=== PATIENT | female | born 1960 | race Caucasian/White ===

== ENCOUNTER 2024-02-09 07:28 | Outpatient (AMB) | payer OTHER, SELFPAY ==
--- NOTE | 2024-02-09 07:34 | A.OFFPC_ITS ---
Vital Signs 02/09/24 07:36 Height 5 ft 9 in Weight 170 lb BMI 25.1 BP 128/80 Blood Pressure Location Lt brachial Position Sitting Pulse 67 Pulse Source Pulse Oximeter Pulse Oximetry (%) 100 Oxygen Delivery Method Room Air Intake Visit Reasons: PE/ insurance needs update Intake Note: Pt is here today as a New Patient to est care/PE Allergies cefotetan Allergy (Intermediate, Verified 02/09/24 08:13) Rash Medication List - Last Reconciled 02/09/24 by Connie Olsen MD calcitriol (Rocaltrol) 0.25 mcg PO DAILY levothyroxine (Unithroid) 125 mcg PO DAILY metformin ER 500 mg PO DAILY Tobacco use date assessed: 02/09/24 Dental Screening Dental Screen Date: 02/09/24 Did you have a dental visit in the last 12 months?: Yes Did you have a dental problem in the last 6 months where you did not have access to dental care?: No Was dental information given to patient?: Patient has dentist HPI PE/ insurance needs update HPI Details Patient presents for [employer] physical. Past medical history includes type 2 diabetes hypothyroidism, controlled on current medications. [facility] Family History (Updated 02/09/24 @ 08:08 by Connie Olsen MD) Mother DM type 2 (diabetes mellitus, type 2) Father DM type 2 (diabetes mellitus, type 2) Sister No problems noted. Social History (Updated 02/09/24 @ 08:23 by Connie Olsen MD) Household Members Other:: , 2 daughters,cares of 2 grandkids, Housing: House Patient Tobacco Use Status: Never used Tobacco e-Cigarette/Vaping Use: Never Used service: No Current occupational status: unemployed Cognitive needs: No Hearing needs: No Vision needs: Yes Questionnaire PHQ-9 Over the last 2 weeks, how often have you been bothered by any of the following problems? 1. Little interest or pleasure in doing things: not at all 2. Feeling down, depressed, or hopeless: not at all 3. Trouble falling or staying asleep, or sleeping too much: not at all 4. Feeling tired or having little energy: not at all 5. Poor appetite or overeating: not at all 6. Feeling bad about yourself - or that you are a failure or have let yourself or your family down: not at all 7. Trouble concentrating on things, such as reading the newspaper or watching t elevision: not at all 8. Moving or speaking so slowly that other people could have noticed. Or the opposite - being so fidgety or restless that you have been moving around a lot more than usual: not at all 9. Thoughts that you would be better off or of hurting yourself in some way: not at all Total score: 0 Depression Screening Interpretation: Negative Depression Screening Done: Yes 65010 - PHQ-9 Billing: Yes Source: Developed by Drs. Kishor Piña, Katharina Bynum, German Melton and colleagues, with an educational amanda from [employer]. Thrive Questionnaire Date Thrive assessed: 02/09/24 I am a: Patient What is your living situation today?: I have a steady place to live Within the past 12 months, did the food you bought not last and you didn't have the money to get more?: I choose not to answer this question Within the past 12 months, did you worry whether your food would run out before you got money to buy more?: I choose not to answer this question Do you have trouble paying for medicines?: No Do you have trouble getting transportation to medical appointments?: No Do you have trouble paying your heating and electricity bill?: No Do you have trouble taking care of your child, family member or friend?: No Do you have trouble with day-to-day activities such as bathing, preparing meals, shopping, managing finances, etc.?: No Are you currently unemployed and looking for a job?: Yes Are you interested in more education?: No Please select the resources that you would like help with: None Currently or been in a relationship where the following occur: I choose not to answer THRIVE Score: 0 AUDIT C Alcohol Use Questionnaire (AUDIT-C) 1. How often do you have a drink containing alcohol?: Never Total Score: 0 URSZULA-7 AMB Questionnaire URSZULA-7 Date URSZULA - 7 assessed: 02/09/24 Feeling nervous, anxious, or on edge: 0 = Not at all Not being able to stop or control worryin = Not at all Worrying too much about different things: 0 = Not at all Trouble relaxin = Not at all Being so restless that it is hard to sit still: 0 = Not at all Becoming easily annoyed or irritable: 0 = Not at all Feeling afraid as if something awful might happen: 0 = Not at all Total URSZULA-7 score (0-4 normal; 5-9 mild; 10-14 moderate; 15-21 severe): 0 Source: Developed by Drs. Kishor Piña, Katharina Bynum, German Melton and colleagues, with an educational amanda from [employer]. Review of Systems Const All systems reviewed & are unremarkable except as noted in HPI and below Eyes Reports no additional complaints ENT Reports no additional complaints Card Reports no additional complaints Resp Reports no additional complaints GI Reports no additional complaints Reports no additional complaints Physical exam (Primary Care) Vital Signs: Last Vital Signs Pulse 67 02/09/24 07:36 BP 128/80 02/09/24 07:36 Pulse Ox 100 02/09/24 07:36 Oxygen Delivery Method Room Air 02/09/24 07:36 BMI result Body Mass Index 25.1 Tobacco/Smoking Status: Tobacco use Status Tobacco use date assessed 02/09/24 02/09/24 07:43 Patient Tobacco Use Status Never used Tobacco 02/09/24 08:23 e-Cigarette/Vaping Use Never Used 02/09/24 08:23 PHQ-9: PHQ-9 Score PHQ-9: Total score 0 02/09/24 08:11 Depression Screening Interpretation: Negative Thrive Assessment: Date of Thrive Assessment Date Thrive assessed 02/09/24 02/09/24 07:43 Currently or been in a relationship where the following occur: I choose not to answer Const General: no acute distress HENMT Head: Yes normal to inspection Ears: hearing grossly normal bilaterally Face and sinus: Yes normal facial exam Throat: Yes posterior oropharynx normal Neck Neck: Yes no lymphadenopathy and Yes supple Resp Effort & Inspection: normal respiratory effort Auscultation: clear to auscultation bilaterally Cardio Rhythm: regular rhythm Heart sounds: S1 normal heart sound present and S2 normal heart sound present GI Inspection: Yes normal to inspection Palpation (GI): Soft to palpation Percussion: Yes normal to percussion Auscultation: normal bowel sounds Coding Level of Care Code New Pt Prev Care 40-64y(14421) Diagnoses DM type 2 (diabetes mellitus, type 2) E11.9 Hypothyroid E03.9 Hyperlipidemia E78.5 H/O thyroidectomy E89.0 Hypoparathyroidism E20.9 Hx of mammogram Z92.89 Additional Codes PHQ-9 - 02462 - PHQ-9 Billing: Yes ([id number]) Assessment & Plan Assessment & Plan (1) DM type 2 (diabetes mellitus, type 2): Comment: DM 2 x 15 yrs, Code(s): E11.9 - Type 2 diabetes mellitus without complications Category: Medical Plan: ADA DIET REGULAR EXERCISE DISCUSSED WITH THE PATIENT CONTINUE METFORMIN RETURN FOR FASTING BLOOD WORK INCLUDING A1C. Patient will obtain records from previous PCP (2) Hypothyroid: Code(s): E03.9 - Hypothyroidism, unspecified Category: Medical Plan: Continue levothyroxine check TSH (3) Hyperlipidemia: Code(s): E78.5 - Hyperlipidemia, unspecified Category: Medical Plan: Low-cholesterol diet discussed with the patient return for fasting blood work (4) H/O thyroidectomy: Comment: 2011 benign nodule Code(s): E89.0 - Postprocedural hypothyroidism Category: Surgical Plan: Continue levothyroxine (5) Hypoparathyroidism: Comment: post surgical Code(s): E20.9 - Hypoparathyroidism, unspecified Category: Medical Plan: Monitor calcium level (6) Hx of mammogram: Comment: 2021 [facility], refused to have another one 02/2024 Code(s): Z92.89 - Personal history of other medical treatment Category: Medical Plan: Check reports some previous mammogram Orders: Orders Hemoglobin A1c 2 Months E03.9 - Hypothyroidism, unspecified, E11.9 - Type 2 diabetes mellitus without complications, E78.5 - Hyperlipidemia, unspecified Comprehensive [place]. Panel Fast 2 Months E03.9 - Hypothyroidism, unspecified, E11.9 - Type 2 diabetes mellitus without complications, E78.5 - Hyperlipidemia, unspecified Microalbumin, Random (w Creat) 2 Months E03.9 - Hypothyroidism, unspecified, E11.9 - Type 2 diabetes mellitus without complications, E78.5 - Hyperlipidemia, unspecified Vitamin D 25-OH Total 2 Months E03.9 - Hypothyroidism, unspecified, E11.9 - Type 2 diabetes mellitus without complications, E78.5 - Hyperlipidemia, unspecified Complete Blood Count Auto Diff 2 Months E03.9 - Hypothyroidism, unspecified, E11.9 - Type 2 diabetes mellitus without complications, E78.5 - Hyperlipidemia, unspecified TSH reflex Free T4 2 Months E03.9 - Hypothyroidism, unspecified, E11.9 - Type 2 diabetes mellitus without complications, E78.5 - Hyperlipidemia, unspecified Lipid Panel 2 Months E03.9 - Hypothyroidism, unspecified, E11.9 - Type 2 diabetes mellitus without complications, E78.5 - Hyperlipidemia, unspecified Medications: New levothyroxine (Unithroid) 125 mcg PO DAILY 90 tabs 3RF calcitriol (Rocaltrol) two capsules po bid 0.25 mcg PO DAILY 360 caps 3RF Unithroid (levothyroxine) 125 mcg PO DAILY 90 tabs 3RF NS Rocaltrol (calcitriol) two capsules po bid 0.25 mcg PO DAILY 360 caps 3RF NS
[2024-02-09 07:36] VITALS: BP 128/80; PULSE 67; O2SAT 100; BMI 25.1
== END 2024-02-09 08:40 | disposition home or self-care (01) ==
PROVIDERS: PCP Internal Medicine; Visit Provider Internal Medicine
DX: Z00.00 Encounter for general adult medical examination without abnormal findings (principal); E11.69 Type 2 diabetes mellitus with other specified complication; E20.9 Hypoparathyroidism, unspecified; E03.9 Hypothyroidism, unspecified; E89.0 Postprocedural hypothyroidism; E78.5 Hyperlipidemia, unspecified; Z92.89 Personal history of other medical treatment

== ENCOUNTER → 2024-02-09 07:28 | Outpatient (BNVA) | payer OTHER, SELFPAY | PROVIDERS: PCP Internal Medicine; Visit Provider Internal Medicine | DX: E11.9 Type 2 diabetes mellitus without complications (principal); E78.5 Hyperlipidemia, unspecified; E89.0 Postprocedural hypothyroidism; E20.9 Hypoparathyroidism, unspecified; Z79.899 Other long term (current) drug therapy | CPT/HCPCS: 96127 ==

== ENCOUNTER 2024-04-10 11:18 | Outpatient (REF) | payer OTHER, SELFPAY ==
[2024-04-10 13:14] LABS: MANUAL DIFF FLAG NO
[2024-04-10 13:24] LABS: Basophils Absolute Auto 0.1 X10*3/uL (0.0-0.2); Basophils Percent Auto 0.8 % (0-2); Eosinophils Absolute Auto 0.1 X10*3/uL (0.0-0.4); Eosinophils Percent Auto 1.6 % (0-4); Hematocrit 46.6 % (37.0-47.0); Hemoglobin 15.5 g/dl (12.0-16.0); Imm Gran Abs Auto 0.01 X10*3/uL (0.00-0.03); Imm Gran Pct Auto 0.1 % (0.0-0.4); Lymphocytes Absolute Auto 2.2 X10*3/uL (1.2-4.9); Lymphocytes Percent Auto 29.9 % (20-40); Mean Corpuscular HGB Conc 33.3 g/dl (31.0-35.0); Mean Corpuscular Hemoglobin 29.9 pg (27.0-33.0); Mean Corpuscular Volume 89.8 fL (80.0-98.0); Mean Platelet Volume 10.1 fL (9.4-12.3); Monocytes Absolute Auto 0.5 X10*3/uL (0.1-1.2); Monocytes Percent Auto 6.6 % (2-11); Neutrophils Absolute Auto 4.4 x10*3/uL (2.0-8.3); Platelet Count 229 X10*3/uL (160-400); Red Blood Count 5.19 X10*6/uL (4.20-5.50); Red Cell Distribution Width 13.4 % (11.0-16.0); White Blood Count 7.3 X10*3/uL (4.8-10.8)
[2024-04-10 13:42] LABS: Estimated Average Glucose 140 mg/dL; Hemoglobin A1C 191.9627 umol/L; Hemoglobin A1c % 6.5 % (<6.0); Total Hemoglobin (HGBA1C) 4018.2868 umol/L
[2024-04-10 13:52] LABS: Alanine Aminotransferase 49 U/L (0-31); Alkaline Phosphatase 70 U/L (39-117); Anion Gap 9 (12-20); Aspartate Amino Transferase 26 U/L (5-31); Bilirubin Total 1.2 mg/dL (0.0-1.0); Blood Urea Nitrogen 15 mg/dL (9-16); Calcium 8.3 mg/dL (8.4-10.2); Carbon Dioxide 28 mmol/L (22-29); Chloride 104 mmol/L (96-108); Cholesterol 284 mg/dL (<200); Estimated Glomerular Filt Rate > 60; Glucose Fasting 115 mg/dL (60-99); HDL Cholesterol 65 mg/dL (>40); LDL Cholesterol Calculated 199 mg/dL (<100); Potassium 4.1 mmol/L (3.3-5.1); Sodium 137 mmol/L (135-145); Total Protein 7.1 g/dL (6.5-8.0); Triglycerides 100 mg/dL (<150)
[2024-04-10 14:10] LABS: Vitamin D 25-OH Total 76.2 ng/mL (>30)
[2024-04-10 14:15] LABS: Creatinine Urine 24.42 mg/dL; Microalbumin Urine < 5.0 mg/L
== END 2024-04-10 11:19 | disposition home or self-care (01) ==
LOC: HO.HMGCLDS 11:18
PROVIDERS: PCP Internal Medicine; Visit Provider Internal Medicine
DX: E78.5 Hyperlipidemia, unspecified (principal); E11.9 Type 2 diabetes mellitus without complications; E03.9 Hypothyroidism, unspecified
CPT/HCPCS: 36415; 80053; 80061; 82043; 82306; 82570; 83036; 84443; 85025

== ENCOUNTER 2024-04-12 09:51 | Outpatient (AMB) | payer OTHER, SELFPAY ==
[2024-04-12 09:56] VITALS: BP 120/74; PULSE 79; O2SAT 97; BMI 25.2
--- NOTE | 2024-04-12 09:56 | A.OFFPC_ITS ---
Vital Signs 04/12/24 09:56 Height 5 ft 9 in Weight 171 lb BMI 25.2 BP 120/74 Blood Pressure Location Lt brachial Position Sitting Pulse 79 Pulse Source Pulse Oximeter Pulse Oximetry (%) 97 Oxygen Delivery Method Room Air Intake Visit Reasons: 2 month f/u Intake Note: Pt is here today for 2 months follow up visit. Allergies cefotetan Allergy (Intermediate, Verified 04/12/24 10:00) Rash atorvastatin Adverse Reaction (Intermediate, Verified 04/12/24 10:31) Muscle Pain simvastatin Adverse Reaction (Intermediate, Verified 04/12/24 10:32) Muscle Pain Medication List - Last Reconciled 04/12/24 by Connie Olsen MD metformin ER 500 mg PO DAILY Rocaltrol (calcitriol) 0.25 mcg PO DAILY NS Unithroid (levothyroxine) 125 mcg PO DAILY NS Tobacco use date assessed: 04/12/24 Dental Screening Dental Screen Date: 04/12/24 Did you have a dental visit in the last 12 months?: Yes Did you have a dental problem in the last 6 months where you did not have access to dental care?: No Was dental information given to patient?: Patient has dentist HPI 2 month f/u HPI Details Pt c/o CP and palpitations on and off, worse at night, when lying down and walking up the stairs. Pt has been under a lot stress. pt's grandson 15 yo wound diagnosed with leukemia 3 months ago and has been undergoing chemotherapy. Patient reports increased blood glucose readings for the last few weeks and increase metformin to 1000 mg a day. She has been following ADA diet. Patient used to take brand-name Crestor from [facility] in the past for hyperlipidemia which caused the least side effects, myalgia. [facility] Family History Mother DM type 2 (diabetes mellitus, type 2) Father DM type 2 (diabetes mellitus, type 2) Sister No problems noted. Social History Household Members Other:: , 2 daughters,cares of 2 grandkids, Housing: House Patient Tobacco Use Status: Never used Tobacco e-Cigarette/Vaping Use: Never Used service: No Current occupational status: unemployed Cognitive needs: No Hearing needs: No Vision needs: Yes Questionnaire PHQ-9 Over the last 2 weeks, how often have you been bothered by any of the following problems? 1. Little interest or pleasure in doing things: not at all 2. Feeling down, depressed, or hopeless: not at all 3. Trouble falling or staying asleep, or sleeping too much: not at all 4. Feeling tired or having little energy: not at all 5. Poor appetite or overeating: not at all 6. Feeling bad about yourself - or that you are a failure or have let yourself or your family down: not at all 7. Trouble concentrating on things, such as reading the newspaper or watching television: not at all 8. Moving or speaking so slowly that other people could have noticed. Or the opposite - being so fidgety or restless that you have been moving around a lot more than usual: not at all 9. Thoughts that you would be better off or of hurting yourself in some way: not at all Total score: 0 Depression Screening Interpretation: Negative Depression Screening Done: Yes 26748 - PHQ-9 Billing: Yes Source: Developed by Drs. Kishor Piña, Katharina Bynum, German Melton and colleagues, with an educational amanda from [employer]. Thrive Questionnaire Date Thrive assessed: 04/12/24 I am a: Patient What is your living situation today?: I have a steady place to live Within the past 12 months, did the food you bought not last and you didn't have the money to get more?: Never true Within the past 12 months, did you worry whether your food would run out before you got money to buy more?: Never true Do you have trouble paying for medicines?: No Do you have trouble getting transportation to medical appointments?: No Do you have trouble paying your heating and electricity bill?: No Do you have trouble taking care of your child, family member or friend?: No Do you have trouble with day-to-day activities such as bathing, preparing meals, shopping, managing finances, etc.?: No Are you currently unemployed and looking for a job?: No Are you interested in more education?: No Please select the resources that you would like help with: None Currently or been in a relationship where the following occur: No concerns reported THRIVE Score: 0 AUDIT C Alcohol Use Questionnaire (AUDIT-C) 1. How often do you have a drink containing alcohol?: Never 3. How often do you have six or more drinks on one occasion?: Never Total Score: 0 URSZULA-7 AMB Questionnaire URSZULA-7 Date URSZULA - 7 assessed: 04/12/24 Feeling nervous, anxious, or on edge: 0 = Not at all Not being able to stop or control worryin = Not at all Worrying too much about different things: 0 = Not at all Trouble relaxin = Not at all Being so restless that it is hard to sit still: 0 = Not at all Becoming easily annoyed or irritable: 0 = Not at all Feeling afraid as if something awful might happen: 0 = Not at all Total URSZULA-7 score (0-4 normal; 5-9 mild; 10-14 moderate; 15-21 severe): 0 Source: Developed by Drs. Kishor Piña, Katharina Bynum, German Melton and colleagues, with an educational amanda from [employer]. URSZULA-7 Assessment Billing URSZULA-7 Assessment Tool: URSZULA-7 Assessment 77207 Review of Systems Const All systems reviewed & are unremarkable except as noted in HPI and below Eyes Reports no additional complaints ENT Reports no additional complaints Card Reports no additional complaints Resp Reports no additional complaints GI Reports no additional complaints Reports no additional complaints Physical exam (Primary Care) Vital Signs: Last Vital Signs Pulse 79 04/12/24 09:56 BP 120/74 04/12/24 09:56 Pulse Ox 97 04/12/24 09:56 Oxygen Delivery Method Room Air 04/12/24 09:56 BMI result Body Mass Index 25.2 Tobacco/Smoking Status: Tobacco use Status Tobacco use date assessed 04/12/24 04/12/24 09:57 Patient Tobacco Use Status Never used Tobacco 04/12/24 09:57 e-Cigarette/Vaping Use Never Used 04/12/24 09:57 PHQ-9: PHQ-9 Score PHQ-9: Total score 0 04/12/24 09:57 Depression Screening Interpretation: Negative Thrive Assessment: Date of Thrive Assessment Date Thrive assessed 04/12/24 04/12/24 09:57 Currently or been in a relationship where the following occur: No concerns reported Const General: no acute distress HENMT Head: Yes normal to inspection Ears: hearing grossly normal bilaterally Throat: Yes posterior oropharynx normal Eyes General: appearance normal, both eyes and all related structures Neck Neck: Yes supple Resp Effort & Inspection: normal respiratory effort Auscultation: clear to auscultation bilaterally Cardio Rhythm: abnormal rhythm irregularly irregular Heart sounds: S1 normal heart sound present and S2 normal heart sound present GI Inspection: Yes normal to inspection Palpation (GI): Soft to palpation Percussion: Yes normal to percussion Auscultation: normal bowel sounds Coding Level of Care Code Est Pt Level 4 (33660) Complex EM visit Add On G2211 Diagnoses DM type 2 (diabetes mellitus, type 2) E11.9 Hypoparathyroidism E20.9 Hypothyroid E03.9 Hyperlipidemia E78.5 Atrial fibrillation I48.91 Additional Codes URSZULA-7 Assessment Billing - URSZULA-7 Assessment Tool: URSZULA-7 Assessment 48632 ([id number]) PHQ-9 - 09672 - PHQ-9 Billing: Yes ([id number]) Assessment & Plan Assessment & Plan (1) DM type 2 (diabetes mellitus, type 2): Comment: DM 2 x 15 yrs, Code(s): E11.9 - Type 2 diabetes mellitus without complications Category: Medical Plan: A1c is 6.5, ADA diet regular exercise continuing metformin discussed with the patient. Follow-up in 3 months (2) Hypoparathyroidism: Comment: post surgical, on calcium and vitamin-D replacement Code(s): E20.9 - Hypoparathyroidism, unspecified Category: Medical Plan: Continue current medications (3) Hypothyroid: Code(s): E03.9 - Hypothyroidism, unspecified Category: Medical Plan: Continue levothyroxine (4) Hyperlipidemia: Comment: Intolerant to generic statins, was able to tolerate crestor Code(s): E78.5 - Hyperlipidemia, unspecified Category: Medical Plan: Patient will restart 10 mg of Crestor, we will get it from [facility] (5) Atrial fibrillation: Comment: dxd in 2020, used to see bale piler(? name) at [facility], noncompliant with Eliquis and f/u, [id number] score 3 Code(s): I48.91 - Unspecified atrial fibrillation Category: Medical Plan: EKG showed AFib a with a heart rate of 87 left bundle-branch block, unchanged from 2020. Patient was advised to restart Eliquis. The risk of CVA because of the AFib discussed with the patient. She will schedule an follow-up appointment with her bale piler at [facility] will be referred to [facility] [place] Cardiology Orders: Orders Comprehensive [place]. Panel Fast 3 Months E03.9 - Hypothyroidism, unspecified, E11.9 - Type 2 diabetes mellitus without complications, E78.5 - Hyperlipidemia, unspecified Hemoglobin A1c 3 Months E03.9 - Hypothyroidism, unspecified, E11.9 - Type 2 diabetes mellitus without complications, E78.5 - Hyperlipidemia, unspecified Complete Blood Count Auto Diff 3 Months E03.9 - Hypothyroidism, unspecified, E11.9 - Type 2 diabetes mellitus without complications, E78.5 - Hyperlipidemia, unspecified Lipid Panel 3 Months E03.9 - Hypothyroidism, unspecified, E11.9 - Type 2 diabetes mellitus without complications, E78.5 - Hyperlipidemia, unspecified Microalbumin, Random (w Creat) 3 Months E03.9 - Hypothyroidism, unspecified, E11.9 - Type 2 diabetes mellitus without complications, E78.5 - Hyperlipidemia, unspecified AMB EKG-In Office Today I48.91 - Unspecified atrial fibrillation Referrals Gastroenterology Referral G89.29 - Other chronic pain, K62.89 - Other specified diseases of anus and rectum, Z00.00 - Encounter for general adult medical examination without abnormal findings, Z01.419 - Encounter for gynecological examination (general) (routine) without abnormal findings Medications: New metformin ER 500 mg PO BID 180 tabs 1RF Crestor (rosuvastatin) 10 mg PO DAILY 90 tabs 3RF NS
== END 2024-04-12 15:59 | disposition home or self-care (01) ==
PROVIDERS: PCP Internal Medicine; Visit Provider Internal Medicine
DX: E11.69 Type 2 diabetes mellitus with other specified complication (principal); E20.9 Hypoparathyroidism, unspecified; I48.91 Unspecified atrial fibrillation; E03.9 Hypothyroidism, unspecified; E78.5 Hyperlipidemia, unspecified

== ENCOUNTER → 2024-04-12 09:51 | Outpatient (BNVA) | payer OTHER, SELFPAY | PROVIDERS: PCP Internal Medicine; Visit Provider Internal Medicine | DX: E11.9 Type 2 diabetes mellitus without complications (principal); E20.9 Hypoparathyroidism, unspecified; E03.9 Hypothyroidism, unspecified; E78.5 Hyperlipidemia, unspecified; I48.91 Unspecified atrial fibrillation; Z79.899 Other long term (current) drug therapy | CPT/HCPCS: 96127 ==

== ENCOUNTER 2024-09-14 08:28 | Outpatient (AMB) | payer OTHER, SELFPAY ==
--- NOTE | 2024-09-14 08:37 | A.OFFVIS_ITS ---
Vital Signs 09/14/24 08:41 09/14/24 08:59 Height 5 ft 7 in Weight 170 lb BMI 26.6 BP 123/76 Blood Pressure Location Lt brachial Position Sitting Pulse 108 H 85 Pulse Oximetry (%) 97 Oxygen Delivery Method Room Air Intake Visit Reasons: rectal pain Intake Note: Patient new consult for rectal pain. Patient cc: rectal pain/hemorrhoids ??. 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 Required: No Accompanied by: Self / Same As Patient Allergies cefotetan Allergy (Intermediate, Verified 08/08/24 12:59) Rash atorvastatin Adverse Reaction (Intermediate, Verified 08/08/24 12:59) Muscle Pain simvastatin Adverse Reaction (Intermediate, Verified 08/08/24 12:59) Muscle Pain Medication List - Last Reconciled 09/14/24 by Johanne Sanchez CNP calcitriol 0.5 mcg (2 x 0.25 mcg) PO BID NS Crestor (rosuvastatin) 10 mg PO DAILY NS metformin ER 500 mg PO BID Unithroid (levothyroxine) 125 mcg PO DAILY NS HPI HPI rectal pain: Details: Patient is a 63-year-old female with PMH of atrial fibrillation, DMII, hyperlipidemia and hypothyroidism. Referred by PCP for further evaluation of rectal pain. [place] reports rectal pain described as a burning sensation that started approximately six months ago, coinciding with the use of tissue wipes. She experiences the pain intermittently throughout the day, particularly after bowel movements and when sitting. The pain tends to reduce in the morning after waking up. She noticed a change in stool caliber, being thinner than usual over the last six months. She also reports intentional weight loss of approximately 20-30 pounds over the same period, following dietary changes for diabetes management, primarily cutting carbohydrates. She occasionally lifts her grandchildren, exacerbating the pain. Patient denies: fever/chills, n/v, appetite changes, pyrosis, regurgitation,dysphasia, unintentional wt loss, ab pain, or melena/hematochezia. SociSocial History - Diet: Dramatic reduction in carbohydrate intake - Alcohol/Tobacco/Drug Use: No alcohol or recreational drug use; never used tobacco - family hx as below -denies personal hx of CA -no prior surgery/procedure that required anesthesia/sedation. [facility] Medical History (Updated 09/14/24 @ 09:22 by Johanne Sanchez CNP) Uterine prolapse Surgical History H/O thyroidectomy Hx of appendectomy Family History Mother DM type 2 (diabetes mellitus, type 2) Father DM type 2 (diabetes mellitus, type 2) Sister No problems noted. Social History Household Members Other:: , 2 daughters,cares of 2 grandkids, Housing: House Patient Tobacco Use Status: Never used Tobacco e-Cigarette/Vaping Use: Never Used service: No Current occupational status: unemployed Cognitive needs: No Hearing needs: No Vision needs: Yes Review of Systems Const Reports as per HPI ENT Reports as per HPI Card Reports as per HPI Resp Reports as per HPI GI Reports as per HPI Reports as per HPI Physical Exam Vital Signs: Last Vital Signs Pulse 85 09/14/24 08:59 BP 123/76 09/14/24 08:41 Pulse Ox 97 09/14/24 08:41 Oxygen Delivery Method Room Air 09/14/24 08:41 BMI result Body Mass Index 26.6 Const General: healthy appearing, no acute distress and well developed Nutritional Appearance: well nourished Orientation/consciousness: patient oriented x3 HEENT Head: Yes normal to inspection, Yes normocephalic and Yes atraumatic Face and sinus: Yes normal facial exam Eyes General: appearance normal, both eyes and all related structures Neck Neck: Yes normal visual inspection Resp Effort & Inspection: normal respiratory effort, able to speak in complete sentences, no tracheal deviation and symmetric chest movement Auscultation: clear to auscultation bilaterally Cardio Jugular venous distension: no JVD Rate: regular rate Rhythm: abnormal rhythm (irregular ) Heart sounds: S1 normal heart sound present, S2 normal heart sound present, no gallops and no murmurs GI Inspection: Yes normal to inspection and No distended Palpation (GI): Soft to palpation, not firm, nontender and No hepatosplenomegaly present Auscultation: normal bowel sounds Rectal Exam - Female: visual inspection normal, normal sphincter tone, No External hemorrhoid(s) present, No Rectal prolapse, No Lesions present (GI), No Anal fissure(s) present, No hemorrhoids, No mass and No tenderness Other: vaginal bulge suggestive of prolapse Neuro General: patient oriented x3 Gait exam (Neuro): Normal gait present Psych Appearance: grossly normal Mental Status: mental status grossly normal Speech and movement: Normal speech and movement present Affect: normal affect Attitude: cooperative Thought process: Normal thought process present Thought content: Normal thought content present Insight: Good insight present (Psych) Judgement: Good judgement present (Psych) Assessment & Plan Assessment & Plan (1) Uterine prolapse: Code(s): N81.4 - Uterovaginal prolapse, unspecified Category: Medical Plan: Suspect given vaginal bulge with valsalva Additional Tests: Gynecological evaluation needed. Lifestyle Modifications: Pelvic floor exercises recommended. Follow-Up: Refer to graining press operator for potential management and treatment options. (2) Chronic rectal pain: Code(s): K62.89 - Other specified diseases of anus and rectum; G89.29 - Other chronic pain Category: Medical Plan: Differential Diagnoses: Hemorrhoids, Anal Fissures, Proctitis, Colorectal Cancer. Exam unyielding. Additional Tests: Colonoscopy recommended to rule out colorectal cancer and oth er pathologies. Lifestyle Modifications: Avoid use of chemical-laden wipes; continue high-fiber diet; stay hydrated Plan Pt to complete fasting labs as per PCP Follow up after colonoscopy Time: I spent a total of 40 minutes on the date of encounter which includes: Preparing to see the patient (reviewed previous documentation, test results and medical history) Performing a medically appropriate exam and/or evaluation Ordering medications, tests, and procedures Documenting clinical information in the health record Orders: Referrals OBIEE ARCHITECT Referral N81.4 - Uterovaginal prolapse, unspecified Medications: New bisacodyl Take four tablets once for 1 day per colonoscopy instructions 5 mg PO ONCE 1 day 4 tabs 0RF polyethylene glycol 3350 (Miralax) per colonoscopy prep instructions 238 grams PO ONCE 238 grams 0RF Coding Level of Care Code New Pt New Pt Level 5 (68016) Patient Type New Diagnoses Uterine prolapse N81.4 Chronic rectal pain K62.89; G89.29
[2024-09-14 08:41] VITALS: BP 123/76; PULSE 108; O2SAT 97; BMI 26.6
--- OUTSIDE RECORDS SUMMARY | 2024-09-14 08:41 | XMS_ITS | Data Portability ---
Author Organization [facility], , [facility] Address [address] [place] [address] Care Team Providers Care Obiee Lead Developer Name Role Phone RALF RADER Primary Care Provider ADIS FELIZ OTHER ADIS FELIZ Proj Engineer Unavailable Assessment No assessment recorded. Plan of Treatment Reminders Order Date Submit Date Provider Last Modified By Organization Details Last Modified Time Details Appointments None record ed. [facility] glucos e[facility] finger stick 2012 [facility] [address] [place] [address], [address], 3 13:05:26 PTH, intact 2012 013 [facility], [address] [place], [address], 3 04:16:54 vitami n D,25-h ydroxy ,lc/ms /ms 2012 013 [facility] ([facility]), [address] [place], [address], 3 04:16:54 thyroi d stimul ating hormon e (TSH) 2012 013 [facility] ([facility]), [address] [place], [address], 3 16:18:36 T4 free 2012 013 [facility] ([facility]), [address] [place], [address], 3 16:18:24 glucos e, finger stick 2012 013 [facility], [address] [place] [address], [address], 3 04:17:51 Referral None record ed. Procedures None record ed. Surgeries None record ed. Imaging None record ed. Medication Orders Unithr oid 150 mcg tablet 2014 015 [facility], [address] [place] [address], [address], 5 11:05:52 calciu m 200 mg (as calciu m citrat e 950 mg) tablet 2014 015 [facility], [address] [place] [address], [address], 5 11:05:52 pravas tatin 40 mg tablet 2014 015 [facility], [address] [place] [address], [address], 5 11:05:52 Unithr oid 175 mcg tablet 2013 014 ptilbe [facility], [address] [place] [address], [address], 4 10:11:38 calcit riol 0.25 mcg capsul e 2012 013 agladu [facility], [address] [place] [address], [address], 5 10:09:41 Patient TargetsNo targets recorded. Patient Instructions Encounter Date Encounter Id Patient Instructions Last Modified By Organization Details Last Modified Time 09/14/2012 [id number] f/u 3 months. [email or web address] Not availa ble 09/14/2012 15:33:20 03/15/2013 [id number] - Don't take more than 600 mg of calcium at any one time. - Take 500-600 mg of calcium 3-4 times a day - Continue on calcitriol (special active form of vitamin D) one tablet daily with two extra pills per week - Get labs done in April, June, August, October, December, February - Keep taking one half of thyroid pill but we will likely change your dose when the labs are updated. Call office (or use portal to email me) if you have not heard from me in 2 weeks. - Stay on metformin for diabetes- you are doing a great job. - Talk to Dr. Rader about your cholesterol values. your bad cholesterol is very high at 170- the goal is to be less than 100. [email or web address] Not available 03/15/2013 13:05:26 f/u late June or early July (60 minutes). [email or web address] Not available 03/15/2013 13:05:09 08/02/2013 [id number] - Alternate 150 mcg with 175 for a week to make sure you feel OK. Then start taking 175 every day only. - Keep taking calcium 2000 four times per day - Labs end of September. [email or web address] Not available 08/02/2013 10:56:35 november. [email or web address] Not available 0 08/02/2013 10:56:35 11/22/2013 [id number] - Get labs done as ordered today - Continue to monitor your blood sugars as directed - Follow a healthy diet - Try and be as physically active as you can [email or web address] Not available 11/22/2013 10:46:25 6 months. [email or web address] Not available 0 11/22/2013 10:44:32 05/24/2014 [id number] - Get labs done as ordered every 3 months - Continue to monitor your blood sugars as directed - Follow a healthy diet - Try and be as physically active as you can Take calcium as you have been doing 4x per day. For cholesterol, try Pravastatin (40mg) and take with co-enzyme Q10. - Continue taking thyroid hormone (8 pills per week) away from other food and especially from other minerals like calcium (dairy), iron, magnesium, etc. - Contact office if any symptoms of low thyroid (excess fatigue, unexplained weight gain, feeling much more cold than usual, constipation, very dry skin) or excess thyroid (heart racing, unexplained weight loss, feeling jittery/nervous/ anxious, change in frequency of moving bowels, tremors, or insomnia) [email or web address] Not available 05/24/2014 11:02:14 labs in 3 months and visit in 6 months [email or web address] Not available 05/24/2014 11:05:53 Reason for Referral None Reported. Results Created Date Observation Date Name Description Value Unit Range Abnormal Flag Note LastModifiedBy Organization Detail LastModifiedTime 03/15/20 13 03/15/2013 gluco makenna millse rstic k glucose 104 mg/dL <110 Not Available [address], [address], 03/15/2013 11:57:32 09/15/19 13 09/14/2012 gluco makenna millse rstic k glucose mg/dL <110 Not Available [address], [address], 09/14/2012 15:31:21 09/15/19 13 09/14/2012 gluco semakennae rstic k glucose 144 mg/dL <110 Not Available [address], [address], 09/14/2012 14:13:55 Result Notes None recorded. Problems Name Problem SNOMED Code Status Onset Date Resolution Date Notes Provider Name and Address Organization Details Recorded Time Type 2 diabetes mellitus without complication 900885154 Active Pamela ying [facility] 5 15:53:36 Postoperative hypothyroidism 72889279 Active Pamela ying [facility] 15:53:36 Hypocalcemia 2761918 Active Sanaz ying [facility] 5 10:20:11 Hyperlipidemia 14264885 Active Adis Feliz MD [address] [place], [place] [address], [address] , [facility] 5 11:05:52 Post-surgical hypoparathyroi dism 621338136 Active Seng Piña MD [address] [place], [place] [address], [address], [facility] 5 16:36:58 Hypercalcemia 24169588 Active Seng Piña MD [address] [place] [address], [facility] [place], [address], [facility] 5 16:36:58 Problem Notes None recorded. Medical Equipment None Reported. Allergies Allergen ID Allergen Name Allergen Category Reaction Reaction Severity Criticality Documentation Date Start Date Code Code System Note Provider Name and Address Organization Details Recorded Time 724732 Cefotan medicatio n Not available Not available Not available 09/14/2012 2185 RxNorm Sobia Campos RN null, [facility] 3 14:13:55 Medications Name Sig Start Date Stop Date Status Note LastModified by Organization Details LastModified Time atorvastat in 40 mg tablet Take 1 tablet(s) EVERY DAY by oral route. 2013 active Pt reminded to have labs drawn prior to appt 11/22/13 Not Available Not Available Not Available metformin 500 mg tablet Take 1 tablet every day by oral route. active Not Available Not Available No t Available pravastati n 40 mg tablet Take 1 tablet every day by oral route for 30 days. 2014 active Not Available Not Available Not Avai lable aspirin 81 mg tablet,del ayed release Take 1 tablet every day by oral route. active Not Available Not Available No t Available calcitriol 0.5 mcg capsule Take 1 capsule(s ) twice daily with calcium as directed 2014 active HERLINDA 05/2014, labs done 11/12/14, f/u 01/23/15 Not Available Not Available Not Available Unithroid 150 mcg tablet TAKE 1 TABLET DAILY WITH EX TRA TABLET ON SUNDAYS. TOTAL OF 8 TABLETS PER WE EK. active HERLINDA 05/24/14, nothing booked. Not Available Not Available Not Available levothyrox ine 200 mcg tablet Take 1 tablet every day by oral route as directed. 2012 active Not Available Not Available Not Avai lable Unithroid 175 mcg tablet Take 1 tablet every day by oral route for 30 days. 2013 active Not Available Not Available Not Avai lable lovastatin 20 mg tablet Take 2 tablets every day by oral route. active Not Available Not Available No t Available calcitriol 0.25 mcg capsule Take 1 capsule every day by oral route as directed for 30 days. 2013 active takes 9 tablets weekly Not Available Not Available Not Available calcium 200 mg (as calcium citrate 950 mg) tablet Take 1 tablet 4 times a day by oral route for 30 days. 2014 active Not Available Not Available Not Avai lable Calcium 500 active 2000mg tabs tid Not Available Not Available Not Available Vitals Date Recorded Body weight Heart rate Body mass index (BMI) Body height Systolic blood pressure Diastolic blood pressure Provider Name and Address Organization Details Last Updated DateTime 5 46801.8 4348 g 76 /min 31.5 kg/m2 171.45 cm 132 mm[Hg] 82 mm[Hg] Odalis Ramos LPN [facility] 5 10:09:41 Date Recorded Body weight Heart rate Body mass index (BMI) Body height Systolic blood pressure Diastolic blood pressure Provider Name and Address Organization Details Last Updated DateTime 4 94867.2 8926 g 66 /min 30.8 kg/m2 170.688 cm 138 mm[Hg] 88 mm[Hg] Haley Balderas [facility] 4 10:19:47 Date Recorded Body weight Body height Body mass index (BMI) Heart rate Systolic blood pressure Diastolic blood pressure Provider Name and Address Organization Details Last Updated DateTime 3 75156.8 4348 g 170.815 cm 31.7 kg/m2 82 /min 156 mm[Hg] 90 mm[Hg] Sobia Campos RN [facility] 3 14:13:55 Date Recorded Body height Body mass index (BMI) Body weight Heart rate Systolic blood pressure Diastolic blood pressure Provider Name and Address Organization Details Last Updated DateTime 4 171.45 cm 30.2 kg/m2 51141.6 59276 g 84 /min 134 mm[Hg] 82 mm[Hg] Dara Richey [facility] 4 10:13:44 Date Recorded Body height Body mass index (BMI) Body weight Heart rate Systolic blood pressure Diastolic blood pressure Provider Name and Address Organization Details Last Updated DateTime 3 170.18 cm 31.2 kg/m2 72699.6 91581 g 80 /min 120 mm[Hg] 80 mm[Hg] Jenn Najera RN [place] [facility] 3 11:57:32 Social History None recorded. Functional Status None recorded. Mental Status None recorded. Family History Relationship Description Onset Age of this Age Resolved Age Notes LastModified by Organization Details LastModified Time Father Type 2 diabetes mellitus [email or web address] n Not available 05/24/2014 10:24:11 Sister Type 2 diabetes mellitus sstuartkhloe n Not available 05/24/2014 10:24:11 Notes:Dad age 72 from D M. Mom age 83 from CVA 2 sisters with diabetes. 2 daughter. healthy. (both live near). was dizzy after surgery but now better. weight went up after surgery 2 daughters- healthy. 5 grandchildren healthy. Daughter in [place] 11/16- 5 grandchildren (2 boys are close by). Every doing OK. 05/20- 2 daughters and 5 grandchildren all healthy. Medical History Condition Response Diabetes Type II Y Thyroid Disease Y Gynecological HistoryNo gynecological history recorded. Obstetrics History GPAL:G 0 P 0 0 0 0 Past Encounters Encounter ID Performer Location Encounter Start Date Encounter Closed Date Diagnosis/Indication Diagnosis SNOMED-CT Code Diagnosis ICD10 Code Diagnosis Note [id number] Adis Feliz MD [facility], [address] [address] 09/14/2012 13:28:51 09/14/2012 15:54:50 [id number] Adis Feliz MD [facility], [address] [address] 03/15/2013 11:35:03 03/15/2013 13:01:09 Hypocalcemia 1875790 last calcium was 8.2 (LLN=8.5). In 12/16- 1,25= 66.7; 25OHD= 39 Has calcitriol and has been taking 9 pills per week. 1,25 level is at upper end of normal and pt already taking 1500 Cacium TID but has been traveling just up until arrival yesterday when had labs- not sure if she was able to take all meds rleiably. Repeat labs in 2 weeks- renal panel only. Plan on monitoring labs every 2 months for now. Postoperat sia hypothyroidism 65132085 Had sx of excess T4 few weeks ago. tSH not done with recent labs. Will try to add on. Likely needs dose adjustment - probably back to 175 Plan on standing order every 3 months for now. Type 2 donavan betes mellitus without complication 097194320 doing well on metformin. Hyperlipidemia 50237147 LDL 170 in 12/16. Pt. is on 40 lovastatin but often takes just 20. Not at goal. Would encourage change to either atovastati n or simvastati n at higher doses (40 simva or 80 atorva). [id number] Adis Feliz MD [facility], [address] [address] 08/02/2013 10:02:28 08/02/2013 11:00:02 Postoperative hypothyroidism 10042634 TSH around 20 on 150 mcg. [place] sx within 2-3 days on 175 so stopped. Explained that is too soon to expect change in sx. Wants to try brand of T4. Try Unithroid at 175. Told her it is OK to initially alternate 150 with 175 in case she is concerned about feeling shakey as before. Follow-up labs end of September. Hypocalcemia 4303434 bet ter calcium (8.2)- had value of 7.6 with high phos. Doing better on 1999 qid with calcitriol . 1,25 levels are OK. Stay on current dose Hyperlipidemia 72320987 LDL not at goal but may reflect hypothyroi d state. Stay on atorvastat in (40) and reassess when euthryroid . Type 2 donavan betes mellitus without complication 450338740 doing well on metformin. [id number] Adis Feliz MD [facility], [address] [address] 11/22/2013 09:56:37 11/22/2013 10:45:34 Type 2 diabetes mellitus without complication 489734673 No a1c done with last labs. Last one was in 07/2013 and was 6.5%. On metformin 500 per day. CV RISK: Lipids at goal from September 2013: 177/150/52 /95. doing well on atorvastat in 40 RENAL: urine ACR done 12/2012; update. Not on ACR but as long as normotensi ve, not clear there is benefit. EYES: recommend update eye exam NEURO: feet in good repair Postoperat sai hypothyroidism 65823098 On 150 mcg Unithroid. Was on 175 but TSH down to 0.16 and told to go back to 150 (was on that but had high TSH). Will see if TSH better currently (may have to do with previous brand) Post-surgi frank hypoparathyroidism 598600806 Although parathyroi d glands were reimplante d (see PMH), has had low PTH in past. Taking calcium 2000 per day in divided doses. Check labs. [id number] Adis Feliz MD [facility], [address] [address] 05/24/2014 09:47:56 05/24/2014 11:06:53 Postoperative hypothyroidism 00513757 TSH was up to 7 and increased to 8 pills of 150 per week. TSH now at 2.24. Continue on 150 8x per week. Monitor labs and adjust prn. She points out another option may be to use 75 + 88 for total of 163. Post-surgi frank hypoparathyroidism 841194469 Has had hypocalcem ia in past but currently doing well on calcium (2000) QID with calcitriol 0.25 per day. C/O some cramping but may be more due to statin or recent TSH of 7 (or combinatio n). Monitor labs every 3 months. (standing order through 02/2015) Type 2 donavan betes mellitus without complication 076518156 doing very well on just 500 metformin daily in terms of a1c but some sugars are high (she says those were done with test strips). Monitor a1c if increases further, can increase metformin dose. Hyperlipidemia 72946876 LDL not at goal now which might reflect hypothyroi d state but also went off atorvastat in (40) because of muscle pains (and also reported some skin sensitivit y). Try pravastati n 40 with coenzyme Q10. call if still has myalgias. Health Concerns Section Related Observation LastModified by Organization Ish noyola LastModified Time None Recorded Concern Status LastModified by Organization Details LastModified Time None Recorded Advance Directives Directive None Recorded Payers Insurance Date Sequence Insurance Name Policy Number Policy Clifford Covered Member ID Clifford Member ID Guarantor Name 10/12/2014 1 [employer] [id number] Sreekanth Acevedo [id number] China Seymourva 05/22/2014 1 [facility] [id number] Sreekanth Acevedo [id number] [place] Nick 11/06/2013 2 *SELF PAY* Didi Nick Notes Date Note Type Note Provider Name and Address Organization Details Recorded Time 03/15/2013 text/html ROS: No severe h/a. No fevers. No SOB. No nausea or vomiting. NO abdominal pain. No muscle pain. No rashes. Occ dizziness when first stands up. Adis Feliz MD [address] [place] [address], [phone], [facility] 03/15/2013 13:09:22 08/02/2013 text/html ROS: No severe h/a. No fevers. No SOB. No nausea or vomiting. NO abdominal pain. No muscle pain. No rashes. Occ dizziness when first stands up. Adis Feliz MD [address] [place] [address], [phone], [facility] 08/02/2013 10:58:12 11/22/2013 text/html ROS: No severe h/a. No fevers. No SOB. No nausea or vomiting. No abdominal pain. No muscle pain. No cramping. No rashes. Occ dizziness when first stands up. Slightly dry. Lips feel a little dry too. some occ pain in hips and knees- occ ankles. Adis Feliz MD [address] [place] [address], [phone], [facility] 11/22/2013 10:53:02 05/24/2014 text/html ROS: No severe h/a. No fevers. No SOB. No nausea or vomiting. No abdominal pain. No rashes. Occ dizziness when first stands up. Slightly dry- all the time. Feet feel a little dry too. Some occ pain in hips and knees- occ ankles. Adis Feliz MD [address] [place] [address], [phone], [facility] 05/25/2014 16:02:01 OBGyn Episode No OBEpisode recorded.
[2024-09-14 08:59] VITALS: PULSE 85
== END 2024-09-14 09:27 | disposition home or self-care (01) ==
LOC: HO.HGI 08:29
PROVIDERS: PCP Internal Medicine; Visit Provider Nurse Practitioner Family
DX: K62.89 Other specified diseases of anus and rectum (principal); G89.29 Other chronic pain; N81.4 Uterovaginal prolapse, unspecified
CPT/HCPCS: 99204

== ENCOUNTER → 2024-09-14 08:28 | Outpatient (BNVA) | payer OTHER, SELFPAY | PROVIDERS: PCP Internal Medicine; Visit Provider Nurse Practitioner Family ==

== ENCOUNTER 2025-02-21 10:45 | Outpatient (AMB) | payer OTHER, SELFPAY ==
--- OUTSIDE RECORDS SUMMARY | 2024-09-28 04:30 | XMS_ITS ---
Author Organization [facility] Address [address] [place] [address] Care Team Providers Care Territory Account Manager Name Role Phone Connie Olsen MD Primary Care Provider Unavaila Merary Smith Unavailable [phone] Basia Mcgregor Unavailable [phone] Encounters Encounter Location Date Provider Diagnosis [facility] [address] [place] [address] 09/28/2024 Basia Mcgregor Plan Of Treatment No Information Progress Notes * Gordy SERRANOaDOB:[birth year] (64 yo F)Acc No.[id number]:09/28/2024 Progress Notes Patient: China SUNSHINE Provider: Jana Mcgregor DPM :1960 A ge:63 Y S ex:Female Date:09/28/2024 Address:[address] [place], [place] [id number] Pcp:Connie Olsen MD Subjective: * Chief Complaints: * * Medical History: Objective: * Vitals: Assessment: Plan: * Treatment: * Images: * The named appointment provid er may or may not be the originator of this progress note, and it is not deemed complete until electronically signed by the appointment provider. Sign off status: Pending * Provider: Jana Mcgregor DPM Date: 0 09/28/2024 Generated for Adriana carrizales/Genevieve/Kemitting on: 04/23/2024 09:10 PM EST
--- NOTE | 2025-02-21 10:47 | MHC.PC.OV ---
Vital Signs 02/21/25 10:50 Height 5 ft 7 in Weight 181 lb BMI 28.3 BP 110/70 Blood Pressure Location Lt brachial Position Sitting Respiration 16 Pulse 67 Pulse Source Pulse Oximeter Temp 97.7 F Temp Source Oral Pulse Oximetry (%) 96 Oxygen Delivery Method Room Air Intake Visit Reasons: Annual - see comments Intake Note: Pt is here today for PE. Allergies cefotetan Allergy (Intermediate, Verified 02/21/25 10:55) Rash atorvastatin Adverse Reaction (Intermediate, Verified 02/21/25 10:55) Muscle Pain simvastatin Adverse Reaction (Intermediate, Verified 02/21/25 10:55) Muscle Pain Medication List - Last Reconciled 02/21/25 by Connie Olsen MD bisacodyl 5 mg PO ONCE 1 day calcitriol 0.5 mcg (2 x 0.25 mcg) PO BID NS Crestor (rosuvastatin) 10 mg PO DAILY NS metformin ER 500 mg PO BID polyethylene glycol 3350 (Miralax) 238 grams PO ONCE Synthroid (levothyroxine) 125 mcg PO DAILY 90 days NS Tobacco use date assessed: 02/21/25 Dental Screening Dental Screen Date: 04/12/24 HPI Annual - see comments HPI Details Pt presents for PE. [facility] Medical History (Updated 02/21/25 @ 11:58 by Connie Olsen MD) Normal pelvic exam Hx of mammogram Annual physical exam Hypoparathyroidism Hypothyroid DM type 2 (diabetes mellitus, type 2) Atrial fibrillation Hyperlipidemia Uterine prolapse Surgical History H/O thyroidectomy Hx of appendectomy Family History Mother DM type 2 (diabetes mellitus, type 2) Father DM type 2 (diabetes mellitus, type 2) Sister No problems noted. Social History Household Members Other:: , 2 daughters,cares of 2 grandkids, Housing: House Patient Tobacco Use Status: Never used Tobacco e-Cigarette/Vaping Use: Never Used service: No Current occupational status: unemployed Cognitive needs: No Hearing needs: No Vision needs: Yes Questionnaire PHQ-9 Over the last 2 weeks, how often have you been bothered by any of the following problems? 1. Little interest or pleasure in doing things: not at all 2. Feeling down, depressed, or hopeless: not at all 3. Trouble falling or staying asleep, or sleeping too much: not at all 4. Feeling tired or having little energy: not at all 5. Poor appetite or overeating: not at all 6. Feeling bad about yourself - or that you are a failure or have let yourself or your family down: not at all 7. Trouble concentrating on things, such as reading the newspaper or watching television: not at all 8. Moving or speaking so slowly that other people could have noticed. Or the opposite - being so fidgety or restless that you have been moving around a lot more than usual: not at all 9. Thoughts that you would be better off or of hurting yourself in some way: not at all Total score: 0 Depression Screening Interpretation: Negative Depression Screening Done: Yes Source: Developed by Drs. Kishor Piña, Katharina Bynum, German Melton and colleagues, with an educational amanda from [employer]. Thrive Questionnaire Date Thrive assessed: 04/12/24 I am a: Patient What is your living situation today?: I have a steady place to live Within the past 12 months, did the food you bought not last and you didn't have the money to get more?: Never true Within the past 12 months, did you worry whether your food would run out before you got money to buy more?: Never true Do you have trouble paying for medicines?: No Do you have trouble getting transportation to medical appointments?: No Do you have trouble paying your heating and electricity bill?: No Do you have trouble taking care of your child, family member or friend?: No Do you have trouble with day-to-day activities such as bathing, preparing meals, shopping, managing finances, etc.?: No Are you currently unemployed and looking for a job?: No Are you interested in more education?: No Please select the resources that you would like help with: None Currently or been in a relationship where the following occur: No concerns reported THRIVE Score: 0 AUDIT C Alcohol Use Questionnaire (AUDIT-C) 1. How often do you have a drink containing alcohol?: Never 3. How often do you have six or more drinks on one occasion?: Never Total Score: 0 URSZULA-7 AMB Questionnaire URSZULA-7 Date URSZULA - 7 assessed: 04/12/24 Feeling nervous, anxious, or on edge: 0 = Not at all Not being able to stop or control worryin = Not at all Worrying too much about different things: 0 = Not at all Trouble relaxin = Not at all Being so restless that it is hard to sit still: 0 = Not at all Becoming easily annoyed or irritable: 0 = Not at all Feeling afraid as if something awful might happen: 0 = Not at all Total URSZULA-7 score (0-4 normal; 5-9 mild; 10-14 moderate; 15-21 severe): 0 Source: Developed by Drs. Kishor Piña, Katharina Bynum, German Melotn and colleagues, with an educational amanda from [employer]. Review of Systems Const All systems reviewed & are unremarkable except as noted in HPI and below Eyes Reports no additional complaints ENT Reports no additional complaints Card Reports no additional complaints Resp Reports no additional complaints GI Reports no additional complaints Reports no additional complaints Physical exam (Primary Care) Vital Signs: Last Vital Signs Temp 97.7 F 02/21/25 10:50 Pulse 67 02/21/25 10:50 Resp 16 02/21/25 10:50 BP 110/70 02/21/25 10:50 Pulse Ox 96 02/21/25 10:50 Oxygen Delivery Method Room Air 02/21/25 10:50 BMI result Body Mass Index 28.3 Tobacco/Smoking Status: Tobacco use Status Tobacco use date assessed 02/21/25 02/21/25 11:00 Patient Tobacco Use Status Never used Tobacco 02/21/25 11:00 e-Cigarette/Vaping Use Never Used 02/21/25 10:48 PHQ-9: PHQ-9 Score PHQ-9: Total score 0 02/21/25 11:00 Depression Screening Interpretation: Negative Thrive Assessment: Date of Thrive Assessment Date Thrive assessed 04/12/24 02/21/25 10:48 Currently or been in a relationship where the following occur: No concerns reported Const General: no acute distress HENMT Head: Yes normal to inspection Ears: TM's normal bilaterally Face and sinus: Yes normal facial exam Mouth: Normal oral and palatal mucosa present Throat: Yes posterior oropharynx normal Eyes General: appearance normal, both eyes and all related structures Neck Neck: Yes no lymphadenopathy and Yes supple Resp Effort & Inspection: normal respiratory effort Auscultation: clear to auscultation bilaterally Cardio Rhythm: regular rhythm Heart sounds: S1 normal heart sound present and S2 normal heart sound present GI Inspection: Yes normal to inspection Palpation (GI): Soft to palpation Percussion: Yes normal to percussion Auscultation: normal bowel sounds Extrem Other: Diabetic foot exam skin is intact monofilament and vibration sensation intact bilaterally General: Yes no clubbing, cyanosis or edema Coding Level of Care Code Est Pt Prev Care 40-64y(76060) Diagnoses Atrial fibrillation I48.91 Hyperlipidemia E78.5 DM type 2 (diabetes mellitus, type 2) E11.9 Hypothyroid E03.9 Annual physical exam Z00.00 Assessment & Plan Assessment & Plan (1) Atrial fibrillation: Comment: dxd in 2020, used to see assistant clinical director(? name) at [facility], noncompliant with Eliquis and f/u Code(s): I48.91 - Unspecified atrial fibrillation Category: Medical Plan: Patient requested referral to Dr. Clement (2) Hyperlipidemia: Comment: Intolerant to generic statins, taking Crestor twice a week could not tolerate daily Crestor because of body aches Code(s): E78.5 - Hyperlipidemia, unspecified Category: Medical Plan: Continue statin check lipid profile today (3) DM type 2 (diabetes mellitus, type 2): Comment: DM 2 x 15 yrs, Code(s): E11.9 - Type 2 diabetes mellitus without complications Category: Medical Plan: ADA diet regular physical activity discussed with the patient. A1c will be checked today and in 6 months. Patient will continue metformin (4) Hypothyroid: Code(s): E03.9 - Hypothyroidism, unspecified Category: Medical Plan: Continue Synthroid (5) Annual physical exam: Code(s): Z00.00 - Encounter for general adult medical examination without abnormal findings Category: Medical Plan: Well-balanced diet regular physical activity discussed with the patient. She declined mammogram and colonoscopy, Cologuard will be sent. 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 Panel Fast 6 Months E03.9 - Hypothyroidism, unspecified, E11.9 - Type 2 diabetes mellitus without complications, E78.5 - Hyperlipidemia, unspecified Complete Blood Count Auto Diff 6 Months E03.9 - Hypothyroidism, unspecified, E11.9 - Type 2 diabetes mellitus without complications, E78.5 - Hyperlipidemia, unspecified TSH reflex Free T4 6 Months E03.9 - Hypothyroidism, unspecified, E11.9 - Type 2 diabetes mellitus without complications, E78.5 - Hyperlipidemia, unspecified Vitamin D 25-OH Total 6 Months E55.9 - Vitamin D deficiency, unspecified Lipid Panel 6 Months E03.9 - Hypothyroidism, unspecified, E11.9 - Type 2 diabetes mellitus without complications, E78.5 - Hyperlipidemia, unspecified Hemoglobin A1c 6 Months E03.9 - Hypothyroidism, unspecified, E11.9 - Type 2 diabetes mellitus without complications, E78.5 - Hyperlipidemia, unspecified Microalbumin, Random (w Creat) 6 Months E03.9 - Hypothyroidism, unspecified, E11.9 - Type 2 diabetes mellitus without complications, E78.5 - Hyperlipidemia, unspecified Referrals Cologuard Test Z12.11 - Encounter for screening for malignant neoplasm of colon, Z12.12 - Encounter for screening for malignant neoplasm of rectum Cardiology Referral I48.91 - Unspecified atrial fibrillation Medications: New calcitriol brand name Rocaltrol medically necessary 1 mcg (4 x 0.25 mcg) PO DAILY 360 caps 3RF NS Refilled metformin ER 500 mg PO BID 180 tabs 3RF Synthroid (levothyroxine) 125 mcg PO DAILY 90 tabs 3RF 90 days NS Discontinued polyethylene glycol 3350 (Miralax) per colonoscopy prep instructions Discontinued Reason: Doctor's Order 238 grams PO ONCE 238 grams 0RF
[2025-02-21 10:50] VITALS: BP 110/70; PULSE 67; RESP 16; TEMP 36.5; O2SAT 96; BMI 28.3
--- OUTSIDE RECORDS SUMMARY | 2025-02-21 21:11 | XMS_ITS | Clinical Summary ---
Author Organization [facility] Address [address] [address] Phone Care Team Providers Care Financial Services Manager Name Role Phone Felecia Neff MD Primary Care Provider Felecia Her MD Unavailable Unavailable Allergies Active Allergy Reactions Criticality Noted Date Comments Cefotetan Swelling,Rash Medium 05/05/2019 Medications apixaban (ELIQUIS) 5 mg tablet Take 5 mg by mouth 2 (two) times a day. Active CALCITRIOL ORAL Take by mouth. Active ezetimibe (ZETIA) 10 mg tablet Take 10 mg by mouth daily. Active metFORMIN (GLUCOPHAGE) 500 MG tablet Take 1,000 mg by mouth 4 (four) times a day. Active omeprazole (PRILOSEC) 20 mg TbEC Take 20 mg by mouth daily before breakfast. Active rosuvastatin (CRESTOR) 5 MG tablet Take 5 mg by mouth daily. Active levothyroxine (SYNTHROID, LEVOTHROID) 137 MCG tablet Take 137 mcg by mouth every morning. Active metoprolol succinate (TOPROL-XL) 50 MG 24 hr tablet Take 50 mg by mouth 2 (two) times a day. Active Active Problems Problem Noted Date Diagnosed Date Other chest pain 05/05/2019 Assessment & Plan (07/23/2020 5:04 PM EDT): Patient not endorsing at this time. She is endorsing palpitations from her atrial fibrillation, but not any specific chest pain or pressure. If she has a recurrence of this which she was endorsing during recent admission, would likely benefit from a nuclear stress test. Paroxysmal atrial fibrillation 05/05/2019 Assessment & Plan (07/23/2020 5:02 PM EDT): Patient was found to be in A. fib with RVR upon recent admission at [facility]. She was previously on Eliquis and diltiazem which she self discontinued earlier last year. She was started back on Eliquis and metoprolol [place] [facility] [place] Continue adequate anticoagulation with Eliquis 5 mg twice a day for chads vas score of 3 (hypertension, diabetes, gender). Patient denies any bleeding complaint at this time. Continue metoprolol 50 mg twice daily for rate control. patient states that she will continue this current regimen until she sees one of our EP physicians in the office. We discussed changing to once a day dosing of her beta-antonio or switching beta-blockers as she was endorsing a stomachache after she takes her medicine, but we will continue current regimen for now. She has been historically intolerant to diltiazem as well due to hypotension. She is endorsing occasional palpitations. Recommend medication compliance for better symptomatic control. Other hyperlipidemia 05/05/2019 Assessment & Plan (07/23/2020 5:04 PM EDT): Patient historically intolerant to lipid-lowering medications including muscle pain from Lipitor and skin rash from Zetia. Elevated lipid panel on [place] [facility] [place] If patient is agreeable in the future, could consider a different statin versus PCSK9 inhibitor. Continue to offer other options at follow-up. Immunizations Immunization Administration Dates Next Due Td (adult),2 Lf Tetanus Toxoid, PF, Adsorbed 04/2001 Tdap 09/14/2017 Family History Medical History Relation Comments Coronary artery disease Father Hypertension Father Stroke Mother Hypertension Sister Relation Status Comments Father Mother Sister Has 2 sisters, b oth have HTN Social History Tobacco Use Types Packs/Day Years Used Date Smoking Tobacco: Never Smokeless Tobacco: Never Alcohol Use Standard Drinks/Week Comments Not Currently 0 (1 standard drink = 0.6 oz pur e alcohol) Education Answer Date Recorded Are you interested in more education? Not on carlos e 07/31/2022 Are you concerned about learning? Not on file 07/31/2022 No 07/31/2022 No 07/31/2022 Digital Access Answer Date Recorded No 09/01/2022 No 09/01/2022 Reliable internet access at home? Not on file 09/01/2022 Device with a working camera? Not on file Comments Unknown Sex and Gender Information Value Date Recorded Sex Assigned at Not on file Legal Sex Female 1:41 PM EST Gender Identity Not on file Sexual Orientation Not on file Last Filed Vital Signs Vital Sign Reading Time Taken Comments Blood Pressure 128/76 07/22/2020 1:53 PM EDT Pulse 64 07/22/2020 1:53 PM EDT Temperature - - Respiratory Rate - - Oxygen Saturation 100% 07/22/2020 1:53 PM EDT Inhaled Oxygen Concentration - - Weight 85.3 kg (188 lb) 07/22/2020 1:53 PM EDT Height 170.2 cm (5' 7 ) 07/22/2020 1:53 PM EDT Body Mass Index 29.44 07/22/2020 1:53 PM EDT Plan of Treatment Health Maintenance Due Date Last Done Comments CREATININE LEVEL 1960 LIPID PANEL 1962 TSH LEVEL 1962 DEPRESSION SCREENING 1974 HEPATITIS C SCREENING 1980 HIV ONE-TIME SCREENING (18-6 5 YEARS) 1980 PAP SMEAR 10/18/1983 MAMMOGRAM 2002 COLOGUARD 10/18/2007 COLONOSCOPY 10/18/2007 COLORECTAL CANCER SCREENING 10/18/2007 FIT TEST 10/18/2007 FOBT 10/18/2007 SIGMOIDOSCOPY 10/18/2007 VIRTUAL COLONOSCOPY 10/18/2007 PNEUMOCOCCAL VACCINES (50+ years) (1 of 1 - PCV) 2012 ZOSTER VACCINES (1 of 2) 2012 INFLUENZA VACCINE (#1) 2024 COVID-19 VACCINE (2 - 2024-2 6 season) 2024 03/27/2021 Adult Td,Tdap Booster 09/15/2027 09/14/2017 , 04/05/2001 RSV VACCINE (1 - 1-dose 75+ series) 2037 SMOKING STATUS SCREENING (On ce After 26 Yrs) Completed 07/22/2020 HEPATITIS A VACCINES Aged Out No long er eligible based on patient's age to complete this topic HIB VACCINES Aged Out No longer eligi ble based on patient's age to complete this topic MENINGOCOCCAL VACCINES (ACWY) Aged Out No longer eligible based on patient's age to complete this topic MENINGOCOCCAL VACCINES (B) Aged Out N o longer eligible based on patient's age to complete this topic Medical Devices Not on file [place] [facility] Address: [address] [place] [address] [address] [place] [address] [place] [id number] [place] [address] [place] [phone] [place] [address] [place] [phone] Care Teams Financial Services Manager Relationship Specialty Start Date End Date Felecia Neff MD PCP - General Internal Medicine 03/09/19 Felecia Neff MD Internal Medicine 03/09/19 Additional Source Comments The information contained in this document represents components of the legal health record. It is not the complete legal health record.[facility]
--- OUTSIDE RECORDS SUMMARY | 2025-02-21 21:11 | XMS_ITS | Patient Health Record ---
Author Organization [facility] Address [address] [place] [address] Care Team Providers Care Field Artillery Operations Specialist Name Role Phone Connie Olsen MD Primary Care Provider Merary Davison Unavailable [phone] Black, Basia Unavailable [phone] Reason For Referral No Information Encounters Encounter Location Date Provider Diagnosis [facility] [address] [place] [address] 09/20/2024 Merary Rose Plan Of Treatment No Information Insurance Providers Payer Name Payer Address Payer Phone Subscriber Number Group Number Insured Name Patient Relationship to Insured Coverage Start Date Coverage End Date [facility] [address] [place] [address] [id number] [place] Nick Self - patient is the insured
--- OUTSIDE RECORDS SUMMARY | 2025-02-21 21:11 | XMS_ITS ---
Author Name [facility] Organization Unknown Care Team Organization Name Specialty Phone Email Start Date End Da te [facility] Guerrero Loyd DO Primary Care 07/07/202211/03 [facility] NELLY BERMEO Primary Care 02/10/2022 11/22/2023
--- OUTSIDE RECORDS SUMMARY | 2025-02-21 21:11 | XMS_ITS | Clinical Summary ---
Author Organization [facility] [address] [place] [address] [place] [phone] Phone Care Team Providers Care Rivet Spinner Name Role Phone Guerrero Loyd DO Primary Care Provider [phone] Allergies Active Allergy Reactions Criticality Noted Date Comments Cefotetan Hives 03/16/2012 Urticaria Medications levothyroxine (Unithroid) 125 mcg tablet Take 1 tablet (125 mcg total) by mouth 1 (one) time each day. 01/07/20 24 Active cycloSPORINE (Restasis MultiDose) 0.05 % drops INSTILL ONE DROP IN EACH EYE TWO TIMES A DAY 04/26/19 24 Active terbinafine (LamISIL) 1 % cream Apply 1 Act topically 2 times daily. 06/21/19 24 Active metFORMIN XR (GLUCOPHAGE-XR) 500 mg 24 hr tablet Take 2 Tablets by mouth 2 times daily (with meals). 02/19/20 23 Active calcium citrate-vitamin D (CITRACAL+D) 315 mg-5 mcg (200 unit) per tablet Take 2 Tablets by mouth 4 times daily. 06/24/19 22 Active blood sugar diagnostic (ONE TOUCH TEST MISC) 1 Strip by Subdermal route 2 times daily. 02/20/20 17 Active lancets lancets Test twice a day 01/29/20 15 Active calcitrioL (RocaltroL) 0.25 mcg capsuleIndications:Pos tsurgical hypoparathyroidism (CMS/HCC V24) Take 2 capsules (0.5 mcg total) by mouth 2 (two) times a day. 360 each 1 05/24/19 25 Active Active Problems Problem Noted Date Diagnosed Date Atrial fibrillation (CMS/HCC V24, [facility] V28) 1 05/03/2018 [place]urgical [place]opar[place] [place] Hypocalcemia 07/25/2012 Overview (03/20/2024): Surgical hypoparathyroidism Post-surgical hypothyroidism 03/11/2012 Overview (03/20/2024): 01/2012, on synthroid 112 Controlled type 2 diabetes m ellitus without complication, without long-term current use of insulin ([facility] V24, [facility] V28) 07/30/2008 Mixed hyperlipidemia 07/30/2008 Abdominal obesity and metabolic syndrome 009 Breast mass 07/11/2008 Thyroid mass 07/11/2008 Overview (03/20/2024): Bx x4 negative 08/11, enlarged nodules bilaterally on f/u us, Seen by Dr Theodore, [facility] 12/29/11 , scheduled for thyroidectomy Immunizations Immunization Administration Dates Next Due Pfizer SARS-CoV-2 COVID-19, mRNA, LNP-S, preservative free 03/28/2021 Td Tetanus diptheria (Tdvax) 7yo and older 04/05 Tdap Tetanus diptheria acell ular pertussis (Boostrix; Adacel) 7yo and older 09/14/2017 Surgical History Surgery Date Site/Laterality Comments APPENDECTOMY 2001 PROCEDURE: GA APPENDECTOMY THYROIDECTOMY 02/03/12 PROCEDURE: HISTORICAL TOTAL THYROIDECTOMY; COMMENT: multinodular goiter Medical History Medical History Date Comments Thyroid mass 07/11/2008 DX:Thyroid mass Type II diabetes mellitus, uncontrolled 07/30/2008 DX:Type II diabetes mellitus , uncontrolled Mixed hyperlipidemia 07/30/2008 DX:Mixed hy perlipidemia Palpitation 03/27/2015 DX:Palpitation; COMMENT: Associated with subclinical hyperthyroid state. 03/20/15 perfusion stress test with fixed small defect mid anteroseptal sgment with nl wall motion felt to be breast attenuation. Essential hypertension 03/09/2019 DX:Essent ial hypertension Esophageal reflux DX:Esophageal reflux Fatty liver DX:Fatty liver Functional dyspepsia DX:Function al dyspepsia Family History Medical History Relation Name Comments No Known Problems Aunt No Known Problems Brother No Known Problems Daughter 1 No Known Problems Daughter 2 Diabetes Father No Known Problems Maternal Grandfather No Known Problems Maternal Grandmother Hypertension Mother Stroke Mother No Known Problems Other No Known Problems Paternal Grandfather No Known Problems Paternal Grandmother No Known Problems Sister 1 No Known Problems Sister 2 Hypertension Sister 3 No Known Problems Uncle Blindness Neg Hx Cataracts Neg Hx Glaucoma Neg Hx Macular degeneration Neg Hx Strabismus Neg Hx Relation Name Status Comments Aunt Brother Daughter 1 Alive Daughter 2 Alive Father Alive Maternal Grandfather war Maternal Grandmother Mother Alive Other Paternal Grandfather war Paternal Grandmother Sister 1 Alive Sister 2 Alive Sister 3 Uncle Social History Tobacco Use Types Packs/Day Years Used Date Smoking Tobacco: Never Smokeless Tobacco: Never Alcohol Use Standard Drinks/Week Comments Not Currently 0 (1 standard drink = 0.6 oz pur e alcohol) Comments Unknown Sex and Gender Information Value Date Recorded Sex Assigned at Not on file Legal Sex Female 3:05 AM EST Gender Identity Not on file Sexual Orientation Not on file Obstetrics History Last Filed Vital Signs Vital Sign Reading Time Taken Comments Blood Pressure 140/89 08/30/2024 8:47 AM EDT Pulse 69 08/30/2024 8:47 AM EDT Temperature 36.3 C (97.3 F) 08/30/2024 8:47 AM EDT Respiratory Rate - - Oxygen Saturation - - Inhaled Oxygen Concentration - - Weight 76.5 kg (168 lb 9.6 oz) 08/30/2024 8:47 A M EDT Height 170.2 cm (5' 7 ) 08/30/2024 8:47 AM EDT Body Mass Index 26.41 08/30/2024 8:47 AM EDT Plan of Treatment Health Maintenance Due Date Last Done Comments Pneumococcal Vaccine: 50+ Years (1 of 2 - PCV) 1981 Zoster Vaccines (1 of 2) 2012 Cervical Cancer Screening: P ap Smear 12/04/2018 12/05/2015 Colorectal Cancer Screening: Stool Based Tests (FOBT/FIT) 03/14/2022 HIV Screening 03/14/2022 Social Influencers of Health Screening 03/14/2022 Breast Cancer Screening 08/20/2022 08/21/19 21, 03/04/2018 Diabetes: Annual Urine Albumin-Creatinine Ratio (uACR) 10/20/2023 10/19/2022 Diabetes: Blood Sugar Contro l Test (HGBA1C) 12/22/2023 06/21/2023 Depression Screening 04/05/2024 Diabetes: Annual Retina Eye Exam 04/22/2024 04/22/2023 Diabetes: Annual Foot Exam 06/20/2024 06/21/2023 COVID-19 Vaccine (2 - 2024-2 6 season) 2024 03/28/2021 Influenza Vaccine (#1) 2024 Diabetes: Annual GFR (Glomerular Filtration Rate) 09/21/2025 09/21/2024, 01/05/2024, 01/05/2024 DTaP,Tdap,and Td Vaccines (3 - Td or Tdap) 09/15/2027 09/14/2017, 04/05/2001 Cholesterol Screening (Lipid Panel) 01/04/2029 01/05/2024, 01/05/2024 RSV Immunization Adult Patients (1 - 1-dose 75+ series) 2037 Hepatitis C Screening Completed 07/29/2012 HIB Vaccines Aged Out No longer eligi ble based on patient's age to complete this topic HPV Vaccines Aged Out No longer eligi ble based on patient's age to complete this topic Hepatitis A Vaccines Aged Out No long er eligible based on patient's age to complete this topic Hepatitis B Vaccines Aged Out No long er eligible based on patient's age to complete this topic IPV Vaccines Aged Out No longer eligi ble based on patient's age to complete this topic MMR Vaccines Aged Out No longer eligi ble based on patient's age to complete this topic Meningococcal ACWY Vaccine Aged Out N o longer eligible based on patient's age to complete this topic Meningococcal B Vaccine Aged Out No l onger eligible based on patient's age to complete this topic RSV Immunization Patients Under 20 months Aged Out No longer eligible b ased on patient's age to complete this topic Varicella Vaccines Aged Out No longer eligible based on patient's age to complete this topic Procedures Procedure Name Priority Date/Time Associated Diagnosis Comments CREATININE, SERUM Routine 09/21/2024 9:0 3 AM EDT Postsurgical hypoparathyroidism (CMS/HCC V24) LIPID PANEL Routine 01/05/2024 HEMOGLOBIN A1C Routine 06/21/2023 DIABETES FOOT EXAM Routine 06/21/2023 DIABETES EYE EXAM Routine 04/22/2023 URINE ALBUMIN CREATININE RATIO Routine 10/19/2022 DX MAMMO INCL CAD UNI Routine 08/20/2020 10:24 AM EDT Unspecified lump in unspecified breast PAP SMEAR Routine 12/05/2015 HEPATITIS C SCREENING Routine 07/29/2012 from Last 3 Months or Most Recently Relevant to Health Maintenance Results * Creatinine (09/21/2024 9:03 AM EDT) Creatinine 0.68 0.50 - 1.10 mg/dL LAB CHEMISTRY METHOD 09/21/2024 12:[address] [facility] eGFR 99 >=60 mL/min/1. 73m2 LAB CHEMISTRY METHOD 09/21/2024 12:[address] [facility] Comment:Calculation based on the Chronic Kidney Disease Epidemiology Collaboration (CKD-EPI) equation refit without adjustment for race. Blood Venous blood specimen / Unknown Venipuncture / Unknown 09/21/2024 9:03 AM EDT 09/21/2024 9:03 AM EDT us Priyanka Meng MD LAB BLOOD ORDERABLES Final Resul t [facility] [address] [place] [address], * (ABNORMAL) Lipid panel (01/05/2024) LDL/HDL Ratio 5(A) 0 - 4 Triglycerides 95 0 - 150 mg/dL Cholesterol 286(A) 0 - 200 mg/dL HDL 63 >=40 mg/dL LDL Cholesterol 204(A) 0 - 100 mg/dL Blood Venous blood specimen / Unknown Result [facility] Provider MD LAB BLOOD ORDERABLES Lydia l Result * Diabetes Foot Exam (06/21/2023) Pathologist [facility] Diabetes: Annual Foot Exam abstracted Result [facility] Provider [place] HEALTH MAINTENANCE Final Result * Hemoglobin A1c (06/21/2023) Pathologist [facility] Hemoglobin A1C 6.5 <=6.5 % Blood Venous blood specimen / Unknown Result [facility] LAB BLOOD ORDERABLES Lydia l Result * Diabetes Eye Exam (04/22/2023) Pathologist [facility] Diabetes: Annual Retina Eye Exam abstracted Result [facility] HEALTH MAINTENANCE Final Result * Urine Albumin Creatinine Ratio (10/19/2022) Pathologist [facility] Urine Albumin Creatinine Ratio abstracted Result [facility] HEALTH MAINTENANCE Final Result * DX MAMMO INCL CAD UNI (08/20/2020 10:24 AM EDT) Anatomical Region Laterality Modality Mammography 08/01/2020 1:46 PM EDT Narrative 08/28/2020 5:02 PM EDT This is a summary report. The complete report is available in the patient's medical record. If you cannot access the medical record, please contact the sending organization for a detailed fax or copy. Left digital 2-D diagnostic mammogram. LEFT DIGITAL 2D and 3D DIAGNOSTIC MAMMOGRAM HISTORY: Work-up for left periareolar pain/itching TECHNIQUE: Left breast CC and MLO full-field views CAD was used COMPARISON: Mammogram from 03/04/2018 FINDINGS: No suspicious masses, microcalcifications or areas of architectural distortion. Density: B LEFT BREAST TARGETED ULTRASOUND EVALUATION HISTORY: Work-up for left periareolar pain/itching TECHNIQUE: Ultrasonographic examination is performed using a linear array transducer. Targeted left breast ultrasound was performed in the periareolar/retroareolar region. Real-time sonographic scanning was also performed. FINDINGS: In the periareolar/retroareolar region, no sonographic evidence of malignancy or other focal abnormalities were identified at the left breast in the area of clinical concern. Impression: No sonographic or mammographic evidence of malignancy BI-RADS Category 2 benign findings Recommendation: Routine annual screening mammography is recommended Procedure Note Layla Mccarthy MD - 05/10/2023 This is a summary report. The complete report is available in thepatient's medical record. If you cannot access the medical record, pleasecontact the sending organization for a detailed fax or copy. Left digital 2-D diagnostic mammogram. LEFT DIGITAL 2D and 3D DIAGNOSTIC MAMMOGRAM HISTORY: Work-up for left periareolar pain/itching TECHNIQUE: Left breast CC and MLO full-field views CAD was used COMPARISON: Mammogram from 03/04/2018 FINDINGS: No suspicious masses, microcalcifications or areas of architecturaldistortion. Density: B LEFT BREAST TARGETED ULTRASOUND EVALUATION HISTORY: Work-up for left periareolar pain/itching TECHNIQUE: Ultrasonographic examination is performed using a linear arraytransducer. Targeted left breast ultrasound was performed in theperiareolar/retroareolar region. Real-time sonographic scanning was alsoperformed. FINDINGS: In the periareolar/retroareolar region, no sonographic evidence ofmalignancy or other focal abnormalities were identified at the left breastin the area of clinical concern. Impression: No sonographic or mammographic evidence of malignancy BI-RADS Category 2 benign findings Recommendation: Routine annual screening mammography is recommended Felecia Neff MD IMG BI PROCEDURES Edited Result - Final * Pap Smear (12/05/2015) Pap smear abstracted ,normal Comment:(Patient reports nor mal results) - pt reports nl exam with recreation supervisor in [facility] Historical Provider HEALTH MAINTENANCE Final Result * Hepatitis C Screening (07/29/2012) Hepatitis C Screening abstracted Historical Provider HEALTH MAINTENANCE Final Result from Last 3 Months or Most Recently Relevant to Health Maintenance Insurance [facility] Care Teams Rivet Spinner Relationship Specialty Start Date End Date Guerreor Loyd DO [address] [place] [address] PCP - General Internal Medicine 03/24/21
== END 2025-02-21 12:02 | disposition home or self-care (01) ==
LOC: HO.HMCC 10:46
PROVIDERS: PCP Internal Medicine; Visit Provider Internal Medicine
DX: Z00.00 Encounter for general adult medical examination without abnormal findings (principal); I48.91 Unspecified atrial fibrillation; E78.5 Hyperlipidemia, unspecified; E11.9 Type 2 diabetes mellitus without complications; E03.9 Hypothyroidism, unspecified

== ENCOUNTER 2025-02-21 10:45 | Outpatient (REF) | payer OTHER, SELFPAY ==
[2025-02-21 13:18] LABS: MANUAL DIFF FLAG NO
[2025-02-21 13:36] LABS: Hematocrit 49.6 % (37.0-47.0); Hemoglobin 16.5 g/dl (12.0-16.0); Imm Gran Abs Auto 0.02 X10*3/uL (0.00-0.03); Imm Gran Pct Auto 0.3 % (0.0-0.4); Lymphocytes Absolute Auto 2.0 X10*3/uL (1.2-4.9); Mean Corpuscular HGB Conc 33.3 g/dl (31.0-35.0); Mean Corpuscular Hemoglobin 29.6 pg (27.0-33.0); Mean Corpuscular Volume 88.9 fL (80.0-98.0); NRBC Abs Auto 0.000 X10*3/uL (0.0-0.012); NRBC Pct Auto 0.0 /100WBC (0.0-0.2); Platelet Count 241 X10*3/uL (160-400); Red Blood Count 5.58 X10*6/uL (4.20-5.50); White Blood Count 7.0 X10*3/uL (4.8-10.8)
[2025-02-21 14:08] LABS: Hemoglobin A1C 141.2295 umol/L; Total Hemoglobin (HGBA1C) 2863.4306 umol/L
[2025-02-21 14:18] LABS: Alanine Aminotransferase 45 U/L (0-31); Albumin Level 4.7 g/dL (3.5-5.0); Alkaline Phosphatase 84 U/L (39-117); Anion Gap 13 (12-20); Aspartate Amino Transferase 31 U/L (5-31); Blood Urea Nitrogen 15 mg/dL (9-16); Calcium 8.5 mg/dL (8.4-10.2); Carbon Dioxide 26 mmol/L (22-29); Chloride 103 mmol/L (96-108); Cholesterol 314 mg/dL (<200); Estimated Glomerular Filt Rate > 60; HDL Cholesterol 57 mg/dL (>40); Potassium 4.0 mmol/L (3.3-5.1); Sodium 138 mmol/L (135-145); Total Protein 7.7 g/dL (6.5-8.0); Triglycerides 131 mg/dL (<150)
[2025-02-21 16:58] LABS: Microalbum/Creatinine Ratio Ur 20.0 ug/mg cr (<30)
[2025-02-21 17:20] LABS: Appearance Urine Clear; Glucose Urine UA Negative (Negative); PH 5.5 (5.0-9.0); Specific Gravity - Urine <= 1.005 (1.005-1.025); UMIC TRIGGER UA YES
== END 2025-02-21 10:46 | disposition home or self-care (01) ==
LOC: HO.HMGCLDS 10:45
PROVIDERS: PCP Internal Medicine; Visit Provider Internal Medicine
DX: Z00.00 Encounter for general adult medical examination without abnormal findings (principal); I48.91 Unspecified atrial fibrillation; E78.5 Hyperlipidemia, unspecified; E11.9 Type 2 diabetes mellitus without complications; E03.9 Hypothyroidism, unspecified
CPT/HCPCS: 36415; 80053; 80061; 81001; 82043; 82570; 83036; 85025; 96127